=== PATIENT | female | born 1955 | race Hispanic/Latino ===

== ENCOUNTER → 2024-11-03 | Outpatient (CLI) | payer OTHER ==
--- NOTE | 2024-11-04 07:46 | HMCIMG ---
EXAM: CT Cardiac calcium scoring. CLINICAL HISTORY: Screening. TECHNIQUE: Thin collimated axial CT cardiac images were obtained. A CT scan is done according to ALARA (As Low As Reasonably Achievable). CONTRAST: None. COMPARISON: None provided. FINDINGS: Calcium Score: VESSEL Number of lesions Volume mm3 Equi. Mass/mg Calcium score LM 1 78.6 - 107.5 LAD 6 90.1 - 130.1 LCX 3 58.6 - 89.1 RCA 1 13.3 - 22.1 Total 11 240.7 - 348.8 IMPRESSION: The total calcium score is 348.8. 87th percentile. /[place]
== END | disposition home or self-care (01) ==
LOC: RAH 13:03
PROVIDERS: ATTEND Internal Medicine Cardiovascular Disease
DX: Z13.6 Encounter for screening for cardiovascular disorders (principal)
CPT/HCPCS: 75571